=== PATIENT | female | born 1975 | race Caucasian/White ===

== ENCOUNTER 2017-06-10 09:42 | Day surgery (SDC) | payer OTHER ==
[2017-06-06 11:12] VITALS: BMI 24.7
[2017-06-10 10:20] VITALS: BP 116/64; PULSE 72; TEMP 98.3
== END 2017-06-10 10:15 | disposition home or self-care (01) ==
LOC: JASU-SURG 09:42
PROVIDERS: ATTEND Obstetrics & Gynecology
PROC: 0UQ90ZZ Repair Uterus, Open Approach (ICD-10-PCS; principal; 2017-06-10)
DX: Z53.8 Procedure and treatment not carried out for other reasons (principal)
CPT/HCPCS: 84703

== ENCOUNTER 2017-06-17 07:05 | Day surgery (SDC) | payer OTHER ==
[2017-06-13 09:27] VITALS: BMI 24.7
--- NOTE | 2017-06-17 08:06 | HP ---
Past Medical History - Primary Care Physician PCP:: Jose David Coley - Admission Chief Complaint: high grade cervical dysplasia History of Present Illness: 42 yo f with hx of severe cervical dysplasia admitted for leep rao alcantara discussed History Source: Patient Limitations to Obtaining History: Language Barrier - Past Surgical History Hx Myomectomy: No Hx Transabdominal Cerclage: No - Smoking History Smoking history: Never smoked - Alcohol/Substance Use Hx Alcohol Use: No - Social History History of Recent Travel: No Home Medications - Allergies Allergies/Adverse Reactions: Allergies Allergy/AdvReac Type Severity Reaction Status Date / Time No Known Allergies Allergy Verified 06/17/17 07:31 - Home Medications Home Medications: Ambulatory Orders NK [No Known Home Medication] 05/11/15 Review of Systems - Review of Systems Constitutional: reports: No Symptoms Eyes: reports: No Symptoms HENT: reports: No Symptoms Neck: reports: No Symptoms Cardiovascular: reports: No Symptoms Respiratory: reports: No Symptoms Gastrointestinal: reports: No Symptoms Genitourinary: reports: No Symptoms Breasts: reports: No Symptoms Reported Musculoskeletal: reports: No Symptoms Endocrine: reports: No Symptoms Hematology/Lymphatic: reports: No Symptoms Psychiatric: reports: 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: Vital Signs Temperature 98 F 06/17/17 07:32 Pulse Rate 66 06/17/17 07:32 Respiratory Rate 18 06/17/17 07:32 Blood Pressure 98/67 06/17/17 07:32 O2 Sat by Pulse Oximetry (%) 98 06/17/17 07:32 Constitutional: Yes: Well Nourished, No Distress, Calm Eyes: Yes: WNL, Conjunctiva Clear, EOM Intact HENT: Yes: WNL, Atraumatic, Normocephalic Neck: Yes: WNL, Supple, Trachea Midline Cardiovascular: Yes: WNL, Regular Rate and Rhythm Respiratory: Yes: WNL, Regular, CTA Bilaterally Gastrointestinal: Yes: WNL ...Rectal Exam: Yes: WNL Renal/: Yes: WNL Vaginal Exam: Yes: Normal Cervix: Yes: Normal Uterus: Yes: Normal Adnexa: Not Palpable: Left, Right Breast(s): Yes: WNL Musculoskeletal: Yes: WNL Extremities: Yes: WNL Edema: No Integumentary: Yes: WNL Neurological: Yes: WNL, Alert, Oriented ...Motor Strength: WNL Psychiatric: Yes: WNL, Alert, Oriented Problem List - Problem (1) High grade squamous intraepithelial cervical dysplasia Code(s): R87.613 - HIGH GRADE INTREPITH LESION CYTO SMR CRVX (HGSIL) Assessment/Plan leep cone , ecc
[2017-06-17] MEDS ORDERED: PROPOFOL 20 ML ONE ×2 (08:09)
[2017-06-17] MEDS ORDERED: LIDOCAINE HCL/PF 2% SDV 5ML VIAL ONE (08:09)
[2017-06-17] MEDS ORDERED: SUCCINYLCHOLINE CHLORIDE 200 MG/10 ML VIAL ONE (08:09)
[2017-06-17] MEDS ORDERED: MIDAZOLAM HCL 2 MG/2 ML SINGLE DOSE VIAL ONE (08:09)
[2017-06-17] MEDS ORDERED: DEXAMETHASONE SOD PHOSPHATE 4 MG/1 ML VIAL ONE (08:33)
[2017-06-17] MEDS ORDERED: ONDANSETRON 4 MG/2 ML VIAL ONE (08:33)
[2017-06-17] MEDS ORDERED: metroNIDAZOLE 0.75% VAGINAL GEL 70 GM TUBE ONE (08:44)
--- NOTE | 2017-06-17 10:18 | OP ---
DATE OF OPERATION: 06/17/2017 PREOPERATIVE DIAGNOSIS: High-grade cervical dysplasia. POSTOPERATIVE DIAGNOSIS: High-grade cervical dysplasia. PROCEDURE: LEEP procedure (loop electrosurgical excision procedure), cone biopsy, and endocervical curettage. SURGEON: Jose David Coley MD ANESTHESIA: General. ESTIMATED BLOOD LOSS: 50 mL DESCRIPTION OF OPERATION: Patient was taken to the operating room, and adequate general anesthesia induced. In lithotomy position, an examination under anesthesia revealed external genitalia to be normal. Vagina was normal. Cervix was no gross lesion. No masses. The uterus was normal size. Adnexa: No masses were palpable. Then, with a glass speculum in the vagina, cervix was saturated with 4% acetic acid. Then, the area of PRATIMA was visualized and Lugol solution was applied and the area was demarcated. Then, with the large loop cautery, the area of the PRATIMA was excised and removed in its entirety. Endocervical curetting was done, and then, with the ball cautery, the area of cone was cauterized and hemostasis was established. Then, was placed in the vaginal cavity. The patient tolerated the procedure well, left the OR in good condition. Fátima [id number]
[2017-06-17] MEDS ORDERED: IBUPROFEN 600 MG TABLET (FP) PO PRN (10:22)
[2017-06-17] MEDS ORDERED: ONDANSETRON 4 MG/2 ML VIAL IVPB PRN (10:22)
[2017-06-17] MEDS ORDERED: IBUPROFEN 800 MG/8 ML IJ IVPB PRN (10:22)
[2017-06-17] MEDS ORDERED: oxyCODONE HCL 5 MG TABLET PO PRN ×3 (10:22→11:23)
[2017-06-17] MEDS ORDERED: ELECTROLYTE-148 SOLN 1,000 ML IV SCH (10:30)
[2017-06-17 11:07] VITALS: BP 99/54; PULSE 56; TEMP 98.2
[2017-06-17] MEDS ORDERED: ONDANSETRON 4 MG/2 ML VIAL IVPUSH PRN (11:23)
[2017-06-17] MEDS ORDERED: LACTATED RINGERS SOLUTION 1,000 ML IV SCH (11:30)
--- NOTE | 2017-06-18 14:36 | PATH ---
Surgical Pathology Report Patient Name: SOLA HICKMAN [facility]. Rec. #: [id number] /Age/Gender: 1975 (Age: 42) / F Account: [id number] Location: [facility] Taken: 06/17/2017 Received: 06/17/2017 Reported: 06/18/2017 Physicians: Jose David Coley M.D. Specimen(s) Received A: CERVICAL LEEP CONE B: ENDOCERVICAL CURETTINGS Clinical History High grade intraepithelial lesion Final Diagnosis A. CERVIX, LEEP CONE BIOPSY: FRAGMENTS OF CERVICAL SQUAMOUS AND ENDOCERVICAL MUCOSA WITH SMALL DETACHED FOCUS OF HIGH GRADE SQUAMOUS INTRAEPITHELIAL LESION (CERVICAL INTRAEPITHELIAL NEOPLASIA 2/PRATIMA 2) AND BACKGROUND FOCI OF LOW GRADE SQUAMOUS INTRAEPITHELIAL LESION. SURGICAL RESECTION MARGINS: APPEAR NEGATIVE FOR HIGH GRADE DYSPLASIA (INTERPRETATION IS LIMITED BY THE FRAGMENTED NATURE OF THE SPECIMEN AND DETACHMENT OF DYSPLASTIC EPITHELIUM). B. ENDOCERVIX, CURETTAGE: FRAGMENTS OF BENIGN ENDOCERVICAL TISSUE. Electronically Signed Clive Hadley M.D. Gross Description A. Received in formalin labeled "LEEP cone" are 20 murphy, unoriented soft tissue fragments ranging from 0.5 x 0.3 x 0.2 cm to 1.7 x 0.6 x 0.3 cm. The specimens are inked blue and the larger portions are serially sectioned. The specimen is entirely submitted in 11 cassettes. B. Received in formalin labeled "endocervical curettings" is a 1.5 x 1.1 x 0.3 cm aggregate of murphy soft tissue fragments admixed with blood-tinged mucous. The formalin is filtered and the specimen is entirely submitted in one cassette. 06/17/2017 [facility]06/17/2017
== END 2017-06-17 11:15 | disposition home or self-care (01) ==
LOC: JASU-SURG 07:05
PROVIDERS: ATTEND Obstetrics & Gynecology
PROC: 0UBC7ZX Excision of Cervix, Via Natural or Artificial Opening, Diagnostic (ICD-10-PCS; 2017-06-17)
PROC: 0UBC7ZX Excision of Cervix, Via Natural or Artificial Opening, Diagnostic (ICD-10-PCS; principal; 2017-06-17 08:00)
DX: R87.613 High grade squamous intraepithelial lesion on cytologic smear of cervix (HGSIL) (principal)
CPT/HCPCS: 84703; 88305-TC; 88307-TC; 94760

== ENCOUNTER 2017-07-05 17:47 | Emergency (ER) | payer OTHER ==
[2017-07-05 17:51] VITALS: BP 111/70; PULSE 74; TEMP 97; BMI 24.5
--- NOTE | 2017-07-05 19:32 | PDOC ---
History of Present Illness - General Chief Complaint: Ear Problem Stated Complaint: EAR PAIN Time Seen by Provider: 07/05/17 19:10 History Source: Patient Exam Limitations: No Limitations - History of Present Illness Initial Comments: 07/05/17 19:25 This is a 42yo woman without PMH who presents today with decreased hearing in her left ear for 24 hours. She denies trauma, fever, pain, or discharge. PMD: Gloria PMH- denies PSH- denies NKDA Pain- none Timing/Duration: 1 week Severity: mild Past History - Travel Traveled outside of the country in the last 30 days: No Close contact w/someone who was outside of country & ill: No - Past Medical History Allergies/Adverse Reactions: Allergies Allergy/AdvReac Type Severity Reaction Status Date / Time No Known Allergies Allergy Verified 07/05/17 17:50 Home Medications: Ambulatory Orders Carbamide Peroxide [Debrox] 15 ml BID #5 drops 07/05/17 Anemia: No Asthma: No Cancer: No Cardiac Disorders: No CVA: No COPD: No CHF: No Dementia: No Diabetes: No GI Disorders: No Disorders: No HTN: No Hypercholesterolemia: No Liver Disease: No Seizures: No Thyroid Disease: No - Surgical History Abdominal Surgery: No Appendectomy: No Cardiac Surgery: No Cholecystectomy: No Lung Surgery: No Neurologic Surgery: No Orthopedic Surgery: No - Immunization History Immunization Up to Date: Yes - Psycho/Social/Smoking Cessation Hx Anxiety: No Suicidal Ideation: No Smoking History: Never smoked Hx Alcohol Use: No Drug/Substance Use Hx: No Substance Use Type: None Hx Substance Use Treatment: No Review of Systems - Review of Systems Able to Perform ROS?: Yes Is the patient limited Wolof proficient: Yes Constitutional: No: Symptoms Reported HEENTM: Yes: Hearing Loss (left ear) Respiratory: No: Symptoms reported Cardiac (ROS): No: Symptoms Reported ABD/GI: No: Symptoms Reported : No: Symptoms Reported Musculoskeletal: No: Symptoms Reported Integumentary: No: Symptoms Reported Neurological: No: Symptoms reported *Physical Exam - Vital Signs Last Vital Signs Temp Pulse Resp BP Pulse Ox 97 F L 74 18 111/70 99 07/05/17 17:48 07/05/17 17:48 07/05/17 17:48 07/05/17 17:48 07/05/17 17:48 - Physical Exam General Appearance: Yes: Appropriately Dressed. No: Apparent Distress HEENT: positive: EOMI, KATHERINE, Other (impacted cerumen present in left ear. ) Neck: positive: Trachea midline, Supple Respiratory/Chest: positive: Lungs Clear, Normal Breath Sounds. negative: Respiratory Distress, Accessory Muscle Use Cardiovascular: positive: Regular Rhythm, Regular Rate, S1, S2. negative: Edema , JVD, Murmur Gastrointestinal/Abdominal: positive: Normal Bowel Sounds, Soft. negative: Tender, Organomegaly Musculoskeletal: positive: Normal Inspection. 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 P: Instill 5cc hydrogen peroxide into ear. Flush with water. remove excess cerumen with curette. Debrox as outpatient f/u with pmd in 1 week. *DC/Admit/Observation/Transfer Diagnosis at time of Disposition: Cerumen impaction Qualifiers: Laterality: left Qualified Code(s): H61.22 - Impacted cerumen, left ear - Discharge Dispostion Disposition: HOME Condition at time of disposition: Stable Admit: No - Prescriptions Prescriptions: Carbamide Peroxide [Debrox] 15 ml BID #5 drops - Referrals Referrals: Idalia Duarte A [Primary Care Provider] - - Patient Instructions Printed Discharge Instructions: Cerumen Impaction Additional Instructions: Utilice Debrox 5-10 gotas dos veces al da alexander 4 jamison para ayudar a suavizar y eliminar cerumen impactado. Evite poner cualquier cosa en julia odos sin martina hablar con un doctor. Chanell timothy sudha con larson mdico en 1 semana para volver a comprobar la cera del o do. Vuelva a la sadie de emergencias si tiene prdida de audicin, fiebre, dolor o cualquier otra preocupacin. Olga por elegirnos para proporcionar julia necesidades emergentes de atencin m dica.
== END 2017-07-05 19:41 | disposition home or self-care (01) ==
LOC: JERFT 17:47
PROC: 09C47ZZ Extirpation of Matter from Left External Auditory Canal, Via Natural or Artificial Opening (ICD-10-PCS; principal; 2017-07-05)
DX: H61.22 Impacted cerumen, left ear (principal)
CPT/HCPCS: 99281-25

== ENCOUNTER 2019-02-16 14:02 | Emergency (ER) | payer OTHER ==
[2019-02-16 14:07] VITALS: BP 120/73; PULSE 75; TEMP 98.1; BMI 28.3
--- NOTE | 2019-02-16 14:14 | PDOC ---
Rapid Medical Evaluation Chief Complaint: Ear Problem Time Seen by Provider: 02/16/19 14:07 Medical Evaluation: Allergies Allergy/AdvReac Type Severity Reaction Status Date / Time No Known Allergies Allergy Verified 02/16/19 14:04 Vital Signs Temp Pulse Resp BP Pulse Ox 98.1 F 75 18 120/73 100 02/16/19 14:05 02/16/19 14:05 02/16/19 14:05 02/16/19 14:05 02/16/19 14:05 02/16/19 14:07 c/o left ear hard of hearing since yesterday. denies fever/ chills, URI symptoms PE: patient alert ox 3 A: hearing problem P: patient to the fast track for further management of care Discharge Disposition - Diagnosis Hearing problem of left ear - Referrals - Patient Instructions - Post Discharge Activity
--- NOTE | 2019-02-16 14:36 | PDOC ---
History of Present Illness - General Chief Complaint: Ear Problem Stated Complaint: LT EAR CLOG Time Seen by Provider: 02/16/19 14:07 - History of Present Illness Initial Comments: 02/16/19 14:34 43-year-old female without comorbidities presents for decreased hearing in the left ear no systemic symptoms no pain. Past History - Past Medical History Allergies/Adverse Reactions: Allergies Allergy/AdvReac Type Severity Reaction Status Date / Time No Known Allergies Allergy Verified 02/16/19 14:04 Home Medications: Ambulatory Orders Carbamide Peroxide [Debrox] 15 ml BID #5 drops 07/05/17 Anemia: No Asthma: No Cancer: No Cardiac Disorders: No CVA: No COPD: No CHF: No Dementia: No Diabetes: No GI Disorders: No Disorders: No HTN: No Hypercholesterolemia: No Liver Disease: No Seizures: No Thyroid Disease: No - Surgical History Abdominal Surgery: No Appendectomy: No Cardiac Surgery: No Cholecystectomy: No Lung Surgery: No Neurologic Surgery: No Orthopedic Surgery: No - Immunization History Immunization Up to Date: Yes - Suicide/Smoking/Psychosocial Hx Smoking History: Never smoked Hx Alcohol Use: No Drug/Substance Use Hx: No Substance Use Type: None Hx Substance Use Treatment: No Review of Systems - Review of Systems HEENTM: Yes: See HPI *Physical Exam - Vital Signs Last Vital Signs Temp Pulse Resp BP Pulse Ox 98.1 F 75 18 120/73 100 02/16/19 14:05 02/16/19 14:05 02/16/19 14:05 02/16/19 14:05 02/16/19 14:05 - Physical Exam Comments: 02/16/19 14:34 HEAD: NC/AT EYES: Conjuntiva clear Ears: Right ear canal and tympanic membrane are normal. Left ear canal is normal there is a large cerumen impaction in the left ear and panic membrane not visualized NOSE: No d/c THROAT: Moist mucous membrances, oral pharanx clear, uvula midline NECK: Supple without adenopathy MS: Full ROM in all joints without edema NEUROLOGIC: No gross sensory or motor deficits, NVID SKIN: Normal color and temperature no lesions or rashes Medical Decision Making - Medical Decision Making 02/16/19 14:35 Discussed treatment options with patient. As well as her fianc. They will follow-up with ENT for cerumen removal *DC/Admit/Observation/Transfer Diagnosis at time of Disposition: Hearing problem of left ear, Cerumen impaction - Discharge Dispostion Disposition: HOME Condition at time of disposition: Stable Decision to Admit order: No - Referrals Referrals: Nathen Penaloza MD [Primary Care Provider] - Himanshu Chowdhury MD [Staff Physician] - - Patient Instructions Printed Discharge Instructions: DI for Cerumen Impaction, Cerumen Impaction Additional Instructions: Follow-up with ear nose and throat doctor in 1-2 days for further evaluation and treatment options. Return to the emergency room for worsening symptoms. - Post Discharge Activity
== END 2019-02-16 15:04 | disposition home or self-care (01) ==
LOC: JERFT 14:02
DX: H61.22 Impacted cerumen, left ear (principal)
CPT/HCPCS: 99281-25